=== PATIENT | female | born 1945 | race Caucasian/White ===

== ENCOUNTER → 2017-09-05 | Outpatient (CLI) | payer OTHER | LOC: BMCIMAGING 10:00 | PROVIDERS: ATTEND Family Medicine | DX: S52.571A Other intraarticular fracture of lower end of right radius, initial encounter for closed fracture (principal); M18.11 Unilateral primary osteoarthritis of first carpometacarpal joint, right hand ==

== ENCOUNTER → 2018-03-06 | Outpatient (CLI) | payer OTHER | LOC: BMCIMAGING 13:33 | PROVIDERS: ATTEND Physician Assistant | DX: Z13.820 Encounter for screening for osteoporosis (principal); Z78.0 Asymptomatic menopausal state ==